=== PATIENT | male | born 1955 | race American Indian/Alaskan Native ===

== ENCOUNTER 2020-11-26 12:19 | Observation (INO) | payer MEDICARE ==
[2020-11-26] MEDS ORDERED: ONDANSETRON 4 MG/2 ML INJ IV ONE (12:51)
[2020-11-26] MEDS ORDERED: SODIUM CHLORIDE 0.9% 1000 ML 1,000 ML IV ONE (12:51)
[2020-11-26] MEDS ORDERED: ASPIRIN 325 MG TAB PO ONE (12:52)
--- NOTE | 2020-11-26 12:56 | Emergency Department Report ---
<MIGUEL ANGEL OLIVAS - Last Filed: 11/26/20 21:18> ED Chest Pain HPI - General Chief Complaint: Nausea/Vomiting/Diarrhea Stated Complaint: HEROIN WITHDRAWLS Time Seen by Provider: 11/26/20 12:36 - Related Data Home Medications Medication Instructions Recorded Confirmed Last Taken Albuterol 0.63% NEBS 11/26/20 Unknown Allergies Allergy/AdvReac Type Severity Reaction Status Date / Time No Known Allergies Allergy Unverified 11/26/20 12:23 ED Past Medical Hx - Medications Home Medications: Home Medications Medication Instructions Recorded Confirmed Last Taken Type Albuterol 0.63% NEBS 11/26/20 Unknown History ED Course - Reevaluation(s) Reevaluation #1: 11/26/20 21:18 Laboratory studies and radiology studies reviewed and appreciated. I suspect that patient has a leukocytosis likely secondary to stress reaction, likely secondary to narcotic withdrawal. CT scan abdomen pelvis reviewed and appreciated, no significant findings noted, with exception of nonspecific biliary ductal dilatation. Right upper quadrant ultrasound negative for acutely emergent findings. We will withhold narcotics at this time, as it appears that the patient may not have been forthcoming or honest about his history. He will be admitted to the medical service for his acute chest pain, systemic inflammatory response syndrome, and renal insufficiency. Antibiotics are requested by the admitting hospitalist team. Advance is [facility] physician, Dr. Marcelo Carpio to admit to [facility], with MARELY Nunez ED Medical Decision Making - Lab Data Result diagrams: 11/26/20 13:40 11/26/20 13:40 Vital Signs 11/26/20 11/26/20 11/26/20 12:23 12:32 12:34 Temperature 98.3 F 98.7 F Pulse Rate 110 H 115 H Respiratory 28 H 16 16 Rate Blood Pressure Blood Pressure 150/112 150/112 [Right] O2 Sat by Pulse 98 98 98 Oximetry 11/26/20 11/26/20 11/26/20 12:36 13:24 14:33 Temperature 98.7 F 98.4 F 98.9 F Pulse Rate 116 H 112 H 102 H Respiratory 18 18 18 Rate Blood Pressure 159/120 Blood Pressure 154/99 151/101 [Right] O2 Sat by Pulse 97 98 97 Oximetry 11/26/20 11/26/20 15:49 17:05 Temperature 98.4 F 98.7 F Pulse Rate 96 H 88 Respiratory 16 19 Rate Blood Pressure Blood Pressure 171/92 126/88 [Right] O2 Sat by Pulse 96 100 Oximetry Lab Results 11/26/20 11/26/20 11/26/20 Range/Units 13:40 13:40 13:40 WBC 19.0 H (4.5-11.0) K/mm3 RBC 5.44 H (3.65-5.03) M/mm3 Hgb 16.3 H (11.8-15.2) gm/dl Hct 49.6 H (35.5-45.6) % MCV 91 (84-94) fl MCH 30 (28-32) pg MCHC 33 (32-34) % RDW 14.0 (13.2-15.2) % Plt Count 542 H (140-440) K/mm3 Lymph % (Auto) 8.2 L (13.4-35.0) % [place] % (Auto) 6.1 (0.0-7.3) % Eos % (Auto) 0.0 (0.0-4.3) % Baso % (Auto) 0.5 (0.0-1.8) % Lymph # (Auto) 1.5 (1.2-5.4) K/mm3 [place] # (Auto) 1.2 H (0.0-0.8) K/mm3 Eos # (Auto) 0.0 (0.0-0.4) K/mm3 Baso # (Auto) 0.1 (0.0-0.1) K/mm3 Seg Neutrophils % 85.2 H (40.0-70.0) % Seg Neutrophils # 16.2 H (1.8-7.7) K/mm3 Sodium 136 L (137-145) mmol/L Potassium 3.7 (3.6-5.0) mmol/L Chloride 92.6 L (98-107) mmol/L Carbon Dioxide 23 (22-30) mmol/L Anion Gap 24 mmol/L BUN 27 H (9-20) mg/dL Creatinine 1.7 H (0.8-1.3) mg/dL Estimated GFR 41 ml/min BUN/Creatinine Ratio 16 % Glucose 135 H (75-100) mg/dL Lactic Acid (0.7-2.0) mmol/L Calcium 10.3 H (8.4-10.2) mg/dL Magnesium (1.7-2.3) mg/dL Ammonia 23.0 L (25-60) umol/L Total Creatine Kinase (55-170) units/L Troponin T (0.00-0.029) ng/mL NT-Pro-B Natriuret Pep (0-900) pg/mL Lipase (13-60) units/L Urine Color (Yellow) Urine Turbidity (Clear) Urine pH (5.0-7.0) Ur Specific [place] (1.003-1.030) Urine Protein (Negative) mg/dL Urine Glucose (UA) (Negative) mg/dL Urine Ketones (Negative) mg/dL Urine Blood (Negative) Urine Nitrite (Negative) Urine Bilirubin (Negative) Urine Ictotest (Negative) Urine Urobilinogen (<2.0) mg/dL Ur Leukocyte Esterase (Negative) Urine WBC (Auto) (0.0-6.0) /HPF Urine RBC (Auto) (0.0-6.0) /HPF Hyaline Casts /LPF Urine Mucus /HPF Urine Opiates Screen Urine Methadone Screen Acetaminophen (10.0-30.0) ug/mL Ur Barbiturates Screen Ur Phencyclidine Scrn Ur Amphetamines Screen U Benzodiazepines Scrn Urine Cocaine Screen U Marijuana (THC) Screen Drugs of Abuse Note 11/26/20 11/26/20 11/26/20 Range/Units 13:40 13:40 13:40 WBC (4.5-11.0) K/mm3 RBC (3.65-5.03) M/mm3 Hgb (11.8-15.2) gm/dl Hct (35.5-45.6) % MCV (84-94) fl MCH (28-32) pg MCHC (32-34) % RDW (13.2-15.2) % Plt Count (140-440) K/mm3 Lymph % (Auto) (13.4-35.0) % [place] % (Auto) (0.0-7.3) % Eos % (Auto) (0.0-4.3) % Baso % (Auto) (0.0-1.8) % Lymph # (Auto) (1.2-5.4) K/mm3 [place] # (Auto) (0.0-0.8) K/mm3 Eos # (Auto) (0.0-0.4) K/mm3 Baso # (Auto) (0.0-0.1) K/mm3 Seg Neutrophils % (40.0-70.0) % Seg Neutrophils # (1.8-7.7) K/mm3 Sodium (137-145) mmol/L Potassium (3.6-5.0) mmol/L Chloride (98-107) mmol/L Carbon Dioxide (22-30) mmol/L Anion Gap mmol/L BUN (9-20) mg/dL Creatinine (0.8-1.3) mg/dL Estimated GFR ml/min BUN/Creatinine Ratio % Glucose (75-100) mg/dL Lactic Acid (0.7-2.0) mmol/L Calcium (8.4-10.2) mg/dL Magnesium 1.50 L (1.7-2.3) mg/dL Ammonia (25-60) umol/L Total Creatine Kinase (55-170) units/L Troponin T < 0.010 (0.00-0.029) ng/mL NT-Pro-B Natriuret Pep 1985 H (0-900) pg/mL Lipase 38 (13-60) units/L Urine Color (Yellow) Urine Turbidity (Clear) Urine pH (5.0-7.0) Ur Specific Ebro (1.003-1.030) Urine Protein (Negative) mg/dL Urine Glucose (UA) (Negative) mg/dL Urine Ketones (Negative) mg/dL Urine Blood (Negative) Urine Nitrite (Negative) Urine Bilirubin (Negative) Urine Ictotest (Negative) Urine Urobilinogen (<2.0) mg/dL Ur Leukocyte Esterase (Negative) Urine WBC (Auto) (0.0-6.0) /HPF Urine RBC (Auto) (0.0-6.0) /HPF Hyaline Casts /LPF Urine Mucus /HPF Urine Opiates Screen Urine Methadone Screen Acetaminophen 12.4 (10.0-30.0) ug/mL Ur Barbiturates Screen Ur Phencyclidine Scrn Ur Amphetamines Screen U Benzodiazepines Scrn Urine Cocaine Screen U Marijuana (THC) Screen Drugs of Abuse Note 11/26/20 11/26/20 11/26/20 Range/Units 14:55 14:55 15:05 WBC (4.5-11.0) K/mm3 RBC (3.65-5.03) M/mm3 Hgb (11.8-15.2) gm/dl Hct (35.5-45.6) % MCV (84-94) fl MCH (28-32) pg MCHC (32-34) % RDW (13.2-15.2) % Plt Count (140-440) K/mm3 Lymph % (Auto) (13.4-35.0) % [place] % (Auto) (0.0-7.3) % Eos % (Auto) (0.0-4.3) % Baso % (Auto) (0.0-1.8) % Lymph # (Auto) (1.2-5.4) K/mm3 [place] # (Auto) (0.0-0.8) K/mm3 Eos # (Auto) (0.0-0.4) K/mm3 Baso # (Auto) (0.0-0.1) K/mm3 Seg Neutrophils % (40.0-70.0) % Seg Neutrophils # (1.8-7.7) K/mm3 Sodium (137-145) mmol/L Potassium (3.6-5.0) mmol/L Chloride (98-107) mmol/L Carbon Dioxide (22-30) mmol/L Anion Gap mmol/L BUN (9-20) mg/dL Creatinine (0.8-1.3) mg/dL Estimated GFR ml/min BUN/Creatinine Ratio % Glucose (75-100) mg/dL Lactic Acid 1.60 (0.7-2.0) mmol/L Calcium (8.4-10.2) mg/dL Magnesium (1.7-2.3) mg/dL Ammonia (25-60) umol/L Total Creatine Kinase 365 H (55-170) units/L Troponin T < 0.010 (0.00-0.029) ng/mL NT-Pro-B Natriuret Pep (0-900) pg/mL Lipase (13-60) units/L Urine Color (Yellow) Urine Turbidity (Clear) Urine pH (5.0-7.0) Ur Specific [place]bro (1.003-1.030) Urine Protein (Negative) mg/dL Urine Glucose (UA) (Negative) mg/dL Urine Ketones (Negative) mg/dL Urine Blood (Negative) Urine Nitrite (Negative) Urine Bilirubin (Negative) Urine Ictotest (Negative) Urine Urobilinogen (<2.0) mg/dL Ur Leukocyte Esterase (Negative) Urine WBC (Auto) (0.0-6.0) /HPF Urine RBC (Auto) (0.0-6.0) /HPF Hyaline Casts /LPF Urine Mucus /HPF Urine Opiates Screen Urine Methadone Screen Acetaminophen (10.0-30.0) ug/mL Ur Barbiturates Screen Ur Phencyclidine Scrn Ur Amphetamines Screen U Benzodiazepines Scrn Urine Cocaine Screen U Marijuana (THC) Screen Drugs of Abuse Note 11/26/20 11/26/20 Range/Units Unknown Unknown WBC (4.5-11.0) K/mm3 RBC (3.65-5.03) M/mm3 Hgb (11.8-15.2) gm/dl Hct (35.5-45.6) % MCV (84-94) fl MCH (28-32) pg MCHC (32-34) % RDW (13.2-15.2) % Plt Count (140-440) K/mm3 Lymph % (Auto) (13.4-35.0) % [place] % (Auto) (0.0-7.3) % Eos % (Auto) (0.0-4.3) % Baso % (Auto) (0.0-1.8) % Lymph # (Auto) (1.2-5.4) K/mm3 [place] # (Auto) (0.0-0.8) K/mm3 Eos # (Auto) (0.0-0.4) K/mm3 Baso # (Auto) (0.0-0.1) K/mm3 Seg Neutrophils % (40.0-70.0) % Seg Neutrophils # (1.8-7.7) K/mm3 Sodium (137-145) mmol/L Potassium (3.6-5.0) mmol/L Chloride (98-107) mmol/L Carbon Dioxide (22-30) mmol/L Anion Gap mmol/L BUN (9-20) mg/dL Creatinine (0.8-1.3) mg/dL Estimated GFR ml/min BUN/Creatinine Ratio % Glucose (75-100) mg/dL Lactic Acid (0.7-2.0) mmol/L Calcium (8.4-10.2) mg/dL Magnesium (1.7-2.3) mg/dL Ammonia (25-60) umol/L Total Creatine Kinase (55-170) units/L Troponin T (0.00-0.029) ng/mL NT-Pro-B Natriuret Pep (0-900) pg/mL Lipase (13-60) units/L Urine Color [place]oxie (Yellow) Urine Turbidity Clear (Clear) Urine pH 5.0 (5.0-7.0) Ur Specific [place] 1.044 H (1.003-1.030) Urine Protein 100 mg/dl (Negative) mg/dL Urine Glucose (UA) Neg (Negative) mg/dL Urine Ketones Tr (Negative) mg/dL Urine Blood Sm (Negative) Urine Nitrite Neg (Negative) Urine Bilirubin Sm (Negative) Urine Ictotest Negative (Negative) Urine Urobilinogen < 2.0 (<2.0) mg/dL Ur Leukocyte Esterase Neg (Negative) Urine WBC (Auto) 3.0 (0.0-6.0) /HPF Urine RBC (Auto) 9.0 (0.0-6.0) /HPF Hyaline Casts 1 /LPF Urine Mucus Few /HPF Urine Opiates Screen Negative Urine Methadone Screen Positive Acetaminophen (10.0-30.0) ug/mL Ur Barbiturates Screen Negative Ur Phencyclidine Scrn Negative Ur Amphetamines Screen Negative U Benzodiazepines Scrn Negative Urine Cocaine Screen Negative U Marijuana (THC) Screen Negative Drugs of Abuse Note Disclamer - Radiology Data Radiology results: report reviewed, image reviewed CT ABDOMEN AND PELVIS WITHOUT CONTRAST INDICATION / CLINICAL INFORMATION: diffu se abdominal tend. TECHNIQUE: Axial CT images were obtained through the abdomen and pelvis without IV contrast. Sagittal and coronal reformatted images. All CT scans at this location are performed using CT dose reduction for ALARA by means of automated exposure control. COMPARISON: None available. FINDINGS: LOWER CHEST: Moderate emphysematous changes. No infiltrate or effusion. Normal heart size. LIVER: No significant abnormality. 1 cm hypodensity near the right hepatic lobe is consistent with a small cyst or hemangioma. GALLBLADDER: No significant abnormality. BILE DUCTS: The common bile duct is markedly dilated up to 1.5 cm. No obvious obstructing lesion is identified on noncontrast CT. There is mild biliary dilatation of the liver hilum. PANCREAS: No significant abnormality. SPLEEN: No significant abnormality. ADRENALS: No significant abnormality. RIGHT KIDNEY and URETER: No significant abnormality. There is a 2 cm hypodensity near mid pole which probably represents a cyst. LEFT KIDNEY and URETER: No significant abnormality. There is a 1 cm hypodensity near mid pole which proba edgardo represents a cyst. STOMACH and SMALL BOWEL: No significant abnormality. COLON: No significant abnormality. APPENDIX: No significant abnormality. PERITONEUM: No free fluid. No free air. No fluid collection. LYMPH NODES: No significant adenopathy. AORTA and ARTERIES: No significant abnormality. IVC and VEINS: No significant abnormality. URINARY BLADDER: No significant abnormality. REPRODUCTIVE ORGANS: No significant abnormality. ADDITIONAL FINDINGS: None. SKELETAL SYSTEM: No significant abnormality. IMPRESSION: Mild biliary dilatation is suspected as described. There is no obvious cholelithiasis or obstructing bile duct lesion on noncontrast CT. Correlate with the patient and consider MRCP or ultrasound. Emphysematous changes at the lung bases. Renal hypodensities which probably represent cysts. Further imaging could be obtained with ultrasound, CT with contrast or MR if needed. Signer Name: Ricardo Gordillo Jr, MD Signed: 11/26/2020 3:19 PM Workstation Name: [id number] RUQ ABDOMINAL ULTRASOUND INDICATION / CLINICAL INFORMATION: abd pain biliaty ductal dilationb. COMPARISON: CT abdomen without contrast 11/26/2020 FINDINGS: PANCREAS: Visualized portions show no significant abnormality. ABDOMINAL AORTA: No significant abnormality. IVC: No significant abnormality.. LIVER: No significant abnormality. Normal hepatopedal blood flow in the main portal vein. GALLBLADDER: No significant abnormality. BILE DUCTS: No significant abnormality. Common bile duct measures 3 mm. RIGHT KIDNEY: Indeterminate 1.9 x 2.4 x 2.0 cm hypoechoic lesion left kidney. Unfortunately, no color Doppler interrogation was performed and lesion is not characteristic for simple cyst on noncontrast CT. FREE FLUID: None. ADDITIONAL FINDINGS: None. IMPRESSION: 1. 2.4 cm indeterminate right renal lesion. Recommend multiphase CT with and without contrast for further workup and evaluation. 2. Otherwise negative right upper quadrant abdominal ultrasound Signer Name: Marbin Grider MD Signed: 11/26/2020 6:23 PM Workstation Name: DON ED Disposition Clinical Impression: Acute chest pain, Acute abdominal pain, History of narcotic use, SIRS (systemic inflammatory response syndrome), Renal insufficiency Disposition: OP ADMIT IP TO THIS HOSP Is pt being admited?: Yes Does the pt Need Aspirin: No Condition: Good <ANASTASIIANITIN Brown - Last Filed: 11/27/20 16:23> ED Chest Pain HPI - General Source: patient Mode of arrival: Stretcher Limitations: No Limitations - History of Present Illness Initial Comments: 65-year-old male with reported history of COPD and 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 He states that he is visiting from [place], where he normally goes to a methadone clinic. He says that he was given 1 weeks worth of methadone for his visit here in [place] but had to stay an extra 5 days because of not having the finances to purchase a flight. He says that over the past 5 days he has had primarily global weakness, nausea/vomiting, diarrhea, chest pain, shortness of breath, generalized abd ominal pain, and whole body pain. He says the chest pain has been constant and is in the middle of his chest. It does not radiate. Is not associated with other symptoms other than shortness of breath. He says he does have chronic shortness of breath and uses an inhaler. He says for the last 3 days he has been vomiting frequently. When asked he says he does not know the name of his methadone clinic. He says his last use of IV heroin was 3 weeks ago. He says this feels exactly like prior episodes of withdrawal. He denies any associated fever/chills, headache, vision change, dysuria, hematuria, focal weakness, sensory changes, or any other complaints. Severity scale (0 -10): 5 Heart Score - HEART Score History: Slightly suspicious EKG: Non-specific Age: 45-65 Risk factors: 1-2 risk factors Troponin: < normal limit HEART Score: 3 - EKG Read Time Time EKG Completed: 13:13 EKG Read Time: 13:17 ED Review of Systems ROS: Stated complaint: HEROIN WITHDRAWLS Other details as noted in HPI Constitutional: denies: chills, fever Eyes: denies: eye pain, vision change ENT: denies: throat pain, congestion Respiratory: shortness of breath. denies: cough Cardiovascular: chest pain. denies: syncope Gastrointestinal: abdominal pain, nausea, vomiting, diarrhea Genitourinary: denies: dysuria, frequency Musculoskeletal: myalgia. denies: joint swelling, arthralgia Skin: denies: rash Neurological: denies: headache, weakness, numbness ED Past Medical Hx - Past Medical History Previous Medical History?: No Additional medical history: Bronchitis - Surgical History Past Surgical History?: No - Social History Smoking Status: Never Smoker Substance Use Type: Cocaine, Methamphetamines ED Physical Exam - General Limitations: No Limitations - Other Other exam information: GENERAL: Well developed and well nourished. No acute distress, occasionally moaning HEAD: Normocephalic. No obvious signs of trauma. ENT: Moist mucous membranes. EYES: Extraocular movements are intact. Pupils are equal round and reactive to light bilaterally NECK: Supple. Full ROM is intact. Trachea is midline. LUNGS: Nonlabored breathing. Equal chest rise bilaterally. Clear to auscultation bilaterally. CARDIOVASCULAR: Regular rate and rhythm. No murmurs or rubs. VASCULAR: Cap refill < 2 seconds ABDOMEN: Abdomen is slightly distended but soft. There is no significant tenderness, guarding or rebound. SKIN: Skin is warm and dry NEURO: Patient is awake, alert, and oriented. bed bug exterminator II-XII grossly intact. No focal deficits. Normal motor and sensory exam throughout. Normal speech. MUSCULOSKELETAL: No obvious deformities. No significant tenderness. Normal ROM throughout. BACK/SPINE: No midline tenderness or step-offs of the C/T/L spine. No c ostovertebral angle tenderness. ED Course Vital Signs 11/26/20 11/26/20 11/26/20 12:23 12:32 12:34 Temperature 98.3 F 98.7 F Pulse Rate 110 H 115 H Respiratory 28 H 16 16 Rate Blood Pressure Blood Pressure 150/112 150/112 [Right] O2 Sat by Pulse 98 98 98 Oximetry 11/26/20 11/26/20 11/26/20 12:36 13:24 14:33 Temperature 98.7 F 98.4 F 98.9 F Pulse Rate 116 H 112 H 102 H Respiratory 18 18 18 Rate Blood Pressure 159/120 Blood Pressure 154/99 151/101 [Right] O2 Sat by Pulse 97 98 97 Oximetry 11/26/20 11/26/20 11/27/20 15:49 17:05 04:28 Temperature 98.4 F 98.7 F 98.4 F Pulse Rate 96 H 88 95 H Respiratory 16 19 18 Rate Blood Pressure 144/101 Blood Pressure 171/92 126/88 [Right] O2 Sat by Pulse 96 100 93 Oximetry MORRO score - Morro Score Age > 65: (0) No Aspirin use within the Past 7 Days: (0) No 3 or more CAD Risk Factors: (0) No 2 or more Angina events in past 24 hrs: (0) No Known CAD with more than 50% Stenosis: (0) No Elevated Cardiac Markers: (0) No ST Deviation Greater than 0.5mm: (0) No MORRO Score: 0 ED Medical Decision Making - Lab Data Result diagrams: 11/26/20 13:40 11/26/20 21:45 - EKG Data -: EKG Interpreted by Me - EKG Data When compared to previous EKG there are: previous EKG unavailable 11/26/20 13:59 Sinus tachycardia. Normal axis. Right atrial enlargement. Intraventricular conduction delay. Otherwise normal intervals. No significant ST segment or T wave abnormalities. - Radiology Data CHEST 2 VIEWS INDICATION: Chest Pain. COMPARISON: None FINDINGS: Support devices: None. Heart: Within normal limits. Lungs/pleura: No acute air space or interstitial disease. No pneumothorax. Additional findings: None. IMPRESSION: No acute findings. Signer Name: Ricardo Gordillo Jr, MD Signed: 11/26/2020 12:57 PM Workstation Name: [id number] - Medical Decision Making 65-year-old male with history of COPD and IV heroin on methadone presents complaining of withdrawal symptoms for the past 3 days. He has numerous complaints including chest pain, shortness of breath, generalized abdominal pain, nausea/vomiting/diarrhea, and whole body pain. He says this feels exactly like prior withdrawal. The patient does not recall the name of his methadone clinic. On initial presentation he is tachycardic but with otherwise normal vital signs. He has moist mucous membranes. His abdomen is slightly distended but soft and without significant tenderness. He has no CVA tenderness. Lungs are clear to auscultation. I asked the patient whether we can find out the name of the clinic because I cannot administer opiates to a patient without confirming that they are indeed taking methadone. In the meantime we will perform broad work-up with a full set of labs, EKG, and chest x-ray. The nurse was able to find out the name of the methadone clinic from the patient's . She contacted the clinic and apparently there is no record of the patient having been a patient there. When I conveyed this information to the patient, he asked to call his to pick him up. However, the patient's labs have resulted and reveal several significant abnormalities. He has a leuko cytosis with white blood cell count of 19, hemoglobin of 16.3 and elevated platelets. Although this may be a stress leukocytosis combined with hemoconcentration given that fall blood cell types are elevated, given the degree of white blood cell elevation I will initiate the sepsis order set including labs and cultures. Chemistry has resulted and reveals sodium of 136, hypokalemia with potassium of 3.7, hypomagnesemia with magnesium of 1.5 as well as elevated creatinine of 1.7 and BUN of 27. The patient's heart score is 3. The patient's Wells score for PE is 1.5, due to his tachycardia, corresponding to low risk. However, given that the patient has multiple objective signs of volume depletion including hemoconcentration and BARBARA, this is the most likely source of his tachycardia and further work-up for PE is not warranted at this time. I went and spoke to the patient about these lab abnormalities and he says he has no history of kidney dysfunction. I asked him what complaints he had at this time and he stated that he has no chest pain or shortness of breath but that his abdomen and back are hurting him. I have therefore ordered CT of the abdomen pelvis. We will give 8 mg of morphine for the patient's pain as well as 30 mL/kg of IV fluids. We will hold off on antibiotics unless we identify a source of infection. We will follow up the remaining studies and plan to admit to medicine for further work-up and management. Electrolyte repletion has been ordered. The case has been signed out to Dr. Olivas at 4:00 PM. Critical care attestation.: If time is entered above; I have spent that time in minutes in the direct care of this critically ill patient, excluding procedure time. ED Disposition Is pt being admited?: Yes
[2020-11-26 14:01] LABS: Basophils # (Auto) 0.1 K/mm3 (0.0-0.1); Basophils % (Auto) 0.5 % (0.0-1.8); Hematocrit 49.6 % (35.5-45.6); Hemoglobin 16.3 gm/dl (11.8-15.2); Lymphocytes # (Auto) 1.5 K/mm3 (1.2-5.4); Lymphocytes % (Auto) 8.2 % (13.4-35.0); Mean Corpuscular HGB Conc 33 % (32-34); Mean Corpuscular Volume 91 fl (84-94); Monocytes # (Auto) 1.2 K/mm3 (0.0-0.8); Monocytes % (Auto) 6.1 % (0.0-7.3); Platelet Count 542 K/mm3 (140-440); Red Blood Count 5.44 M/mm3 (3.65-5.03)
--- NOTE | 2020-11-26 14:02 | XRay Report ---
CHEST 2 VIEWS INDICATION: Chest Pain. COMPARISON: None FINDINGS: Support devices: None. Heart: Within normal limits. Lungs/pleura: No acute air space or interstitial disease. No pneumothorax. Additional findings: None. IMPRESSION: No acute findings. Signer Name: Ricardo Gordillo Jr, MD Signed: 11/26/2020 1:57 PM Workstation Name: [id number]
[2020-11-26 14:14] LABS: Calcium 10.3 mg/dL (8.4-10.2)
[2020-11-26] MEDS ORDERED: SODIUM CHLORIDE 0.9% 1000 ML IV SOLN IV ONE (14:36)
[2020-11-26] MEDS ORDERED: MORPHINE 4 MG/1 ML INJ IV ONE (14:38)
[2020-11-26] MEDS ORDERED: POTASSIUM CHLORIDE ER 10 MEQ TAB PO NR (15:22)
[2020-11-26] MEDS ORDERED: MAGNESIUM SULFATE 2 GM/50 ML BAG IV ONE (15:39)
[2020-11-26 16:10] LABS: Amphetamine Screen,Urine Negative; Benzodiazepines Screen,Urine Negative; Cannabinoid Screen,Urine Negative; Cocaine Screen,Urine Negative; Opiate Screen,Urine Negative
[2020-11-26 16:13] LABS: Bilirubin,Urine SM (Negative); Blood,Urine SM (Negative); Color,Urine Amber (Yellow); Hyaline Casts,Urine 1 /LPF; Mucus,Urine FEW /HPF; Urobilinogen,Urine < 2.0 mg/dL (<2.0)
[2020-11-26 16:22] LABS: Methadone Screen,Urine Positive
[2020-11-26 16:23] LABS: Ictotest,Urine Negative (Negative)
--- NOTE | 2020-11-26 16:24 | Cat Scan Report ---
CT ABDOMEN AND PELVIS WITHOUT CONTRAST INDICATION / CLINICAL INFORMATION: diffuse abdominal tend. TECHNIQUE: Axial CT images were obtained through the abdomen and pelvis without IV contrast. Sagittal and lee l reformatted images. All CT scans at this location are performed using CT dose reduction for ALARA b y means of automated exposure control. COMPARISON: None available. FINDINGS: LOWER CHEST: Moderate emphysematous changes. No infiltrate or effusion. Normal heart size. LIVER: No significant abnormality. 1 cm hypodensity near the right hepatic lobe is consistent with a small cyst or hemangioma. GALLBLADDER: No significant abnormality. BILE DUCTS: The common bile duct is markedly dilated up to 1.5 cm. No obvious obstructing lesion is i dentified on noncontrast CT. There is mild biliary dilatation of the liver hilum. PANCREAS: No significant abnormality. SPLEEN: No significant abnormality. ADRENALS: No significant abnormality. RIGHT KIDNEY and URETER: No significant abnormality. There is a 2 cm hypodensity near mid pole which probably represents a cyst. LEFT KIDNEY and URETER: No significant abnormality. There is a 1 cm hypodensity near mid pole which p robably represents a cyst. STOMACH and SMALL BOWEL: No significant abnormality. COLON: No significant abnormality. APPENDIX: No significant abnormality. PERITONEUM: No free fluid. No free air. No fluid collection. LYMPH NODES: No significant adenopathy. AORTA and ARTERIES: No significant abnormality. IVC and VEINS: No significant abnormality. URINARY BLADDER: No significant abnormality. REPRODUCTIVE ORGANS: No significant abnormality. ADDITIONAL FINDINGS: None. SKELETAL SYSTEM: No significant abnormality. IMPRESSION: Mild biliary dilatation is suspected as described. There is no obvious cholelithiasis or obstructing bile duct lesion on noncontrast CT. Correlate with the patient and consider MRCP or ultrasound. Emphysematous changes at the lung bases. Renal hypodensities which probably represent cysts. Further imaging could be obtained with ultrasound , CT with contrast or MR if needed. Signer Name: Ricardo Gordillo Jr, MD Signed: 11/26/2020 4:19 PM Workstation Name: [id number]
[2020-11-26 17:45] LABS: Albumin 4.9 g/dL (3.9-5); Bilirubin,Direct 0.2 mg/dL (0-0.2)
--- NOTE | 2020-11-26 19:28 | Ultrasound Report ---
LIMITED RUQ ABDOMINAL ULTRASOUND INDICATION / CLINICAL INFORMATION: abd pain biliaty ductal dilationb. COMPARISON: CT abdomen without contrast 11/26/2020 FINDINGS: PANCREAS: Visualized portions show no significant abnormality. ABDOMINAL AORTA: No significant abnormality. IVC: No significant abnormality.. LIVER: No significant abnormality. Normal hepatopedal blood flow in the main portal vein. GALLBLADDER: No significant abnormality. BILE DUCTS: No significant abnormality. Common bile duct measures 3 mm. RIGHT KIDNEY: Indeterminate 1.9 x 2.4 x 2.0 cm hypoechoic lesion left kidney. Unfortunately, no color Doppler interrogation was performed and lesion is not characteristic for simple cyst on noncontrast CT. FREE FLUID: None. ADDITIONAL FINDINGS: None. IMPRESSION: 1. 2.4 cm indeterminate right renal lesion. Recommend multiphase CT with and without contrast for fur ther workup and evaluation. 2. Otherwise negative right upper quadrant abdominal ultrasound Signer Name: Marbin Grider MD Signed: 11/26/2020 7:23 PM Workstation Name: [id number]
[2020-11-26] MEDS ORDERED: ACETAMINOPHEN 500 MG TAB PO ONE (19:31)
[2020-11-26] MEDS ORDERED: NITROGLYCERIN 0.4 MG TAB SUBL SL PRN (21:28)
[2020-11-26] MEDS ORDERED: MORPHINE 4 MG/1 ML INJ IV PRN (21:28)
[2020-11-26] MEDS ORDERED: oxyCODONE /ACETAMINOPHEN 5-325MG TAB PO PRN (21:28)
[2020-11-26] MEDS ORDERED: ACETAMINOPHEN 325 MG TAB PO PRN (21:28)
[2020-11-26] MEDS ORDERED: ALBUTEROL 2.5 MG/3 ML NEBU IH PRN (21:28)
[2020-11-26] MEDS ORDERED: ONDANSETRON 4 MG/2 ML INJ IV PRN (21:28)
[2020-11-26] MEDS ORDERED: NALOXONE 0.4 MG/1 ML INJ IV PRN (21:28)
[2020-11-26] MEDS ORDERED: LIDOCAINE 5% 1 EACH PATCH TD STA (21:29)
[2020-11-26] MEDS ORDERED: ERTAPENEM 1 GM in SODIUM CHLORIDE 0.9% 50 ML IV ONE (22:18)
[2020-11-26 22:20] LABS: BUN/Creatinine Ratio 21; Blood Urea Nitrogen 25 mg/dL (9-20); Calcium 8.7 mg/dL (8.4-10.2); Chol/HDL Ratio 6.45 %; HDL Cholesterol 40 mg/dL (40-59); Hemolysis Index 31; LDL Cholesterol,Direct 187 mg/dL (50-130)
[2020-11-26] MEDS: DOCUSATE SODIUM 100 MG CAP PO SCH (22:40)
[2020-11-26] MEDS: HYDROmorphone 1 MG/1 ML INJ IV PRN (22:40)
[2020-11-26] MEDS: HEPARIN 5,000 UNIT/1 ML VIAL SUB-Q SCH (22:43)
--- NOTE | 2020-11-26 22:44 | History and Physical Report ---
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 Patient states he has been experiencing 10/10 sharp substernal chest pain with radiation to upper back x3 days. Initially his pain was intermittent however progress to constant and became more intense as the days progressed. Denies taking any [id number] medicine for relief. Endorses multiple episodes of emesis last night and one episode today prior to presenting to ED. Patient states he is visiting from [place] and has been here approximately 1 week. Patient does not recall the name of his methadone clinic at this time. Denies fever, chills, diarrhea, abdominal pain, constipation, myalgia, loss of taste, loss of smell, palpitation, recent heroin use/binge or recent sick contacts Past History Past Medical History: COPD, other (IV heroin use, on methadone, bronchitis, chronic CKD.) Past Surgical History: Other (Previously on HD with AV fistula, removal of AV fistula approximately 10 years ago, " head surgery") Social history: , lives with family (Lives with (in [place]), staying with daughter while visiting in [place]), smoking (Smokes half pack a day), IV drug use, full code. denies: alcohol abuse, prescription drug abuse Family history: hypertension Medications and Allergies Allergies Allergy/AdvReac Type Severity Reaction Status Date / Time No Known Allergies Allergy Unverified 11/26/20 12:23 Home Medications Medication Instructions Recorded Confirmed Last Taken Type Albuterol 0.63% NEBS 11/26/20 Unknown History Active Meds: Active Medications Acetaminophen (Acetaminophen 325 Mg Tab) 650 mg PO Q4H PRN PRN Reason: Pain MILD(1-3)/Fever >100.5/RIVAS Albuterol (Albuterol 2.5 Mg/3 Ml Nebu) 2.5 mg IH Q3HRT PRN PRN Reason: Shortness Of Breath Aspirin (Aspirin Ec 325 Mg Tab) 325 mg PO QDAY [facility] Atorvastatin Calcium (Atorvastatin 40 Mg Tab) 40 mg PO QHS [facility] Docusate Sodium (Docusate Sodium 100 Mg Cap) 100 mg PO BID [facility] Heparin Sodium (Porcine) (Heparin 5,000 Unit/1 Ml Vial) 5,000 unit SUB-Q Q12HR [facility] Hydromorphone HCl (Hydromorphone 1 Mg/1 Ml Inj) 0.5 mg IV Q3H PRN PRN Reason: Pain , Severe (7-10) Ertapenem 1 gm/ Sodium (Chloride) 50 mls @ 100 mls/hr IV ONCE ONE Stop: 11/26/20 22:47 Morphine Sulfate (Morphine 4 Mg/1 Ml Inj) 2 mg IV Q5MIN PRN PRN Reason: Chest Pain Naloxone HCl (Naloxone 0.4 Mg/1 Ml Inj) 0.1 mg IV Q2MIN PRN PRN Reason: Res Rate </= 8 or 02 SAT < 92% Nicotine (Nicotine 14 Mg/24 Hr Patch) 14 mg TD QDAY [facility] Nitroglycerin (Nitroglycerin 0.4 Mg Tab Subl) 0.4 mg SL Q5M PRN PRN Reason: Chest Pain Ondansetron HCl (Ondansetron 4 Mg/2 Ml Inj) 4 mg IV Q6H PRN PRN Reason: Nausea And Vomiting Oxycodone/Acetaminophen (Oxycodone /Acetaminophen 5-325mg Tab) 1 tab PO Q6H PRN PRN Reason: Pain, Moderate (4-6) Sodium Chloride (Sodium Chloride 0.9% 10 Ml Flush Syringe) 10 ml IV BID LOPEZ Sodium Chloride (Sodium Chloride 0.9% 10 Ml Flush Syringe) 10 ml IV PRN PRN PRN Reason: LINE FLUSH Review of Systems All systems: negative (As noted in HPI) Exam - Physical Exam Narrative exam: Physical exam General appearance: Present: Appears uncomfortable,, alert and oriented 3, adult male - EENT Eyes: Present: PERRL, EOM intact ENT: hearing intact, normal dentition - Neck Neck: Present: supple, normal ROM - Respiratory Respiratory effort: Non-labored Respiratory: Clear throughout - Cardiovascular Heart rate: 111 (bpm) Rhythm: Sinus tachycardia Heart Sounds: Present: S1 & S2. Absent: rub, click - Extremities Extremities: no ischemia, pulses intact, - Peripheral Assessment Peripheral Pulses: within normal limits - Abdominal General gastrointestinal: soft, non-tender, normal bowel sounds - Integumentary Integumentary: Present: warm, dry - Musculoskeletal Musculoskeletal: Able to move all extremities -Neurological Neurological: CN II-XII intact - Psychiatric Psychiatric: cooperative, slightly anxious - Constitutional Vitals: Temp Pulse Resp BP Pulse Ox 98.7 F 88 19 126/88 100 11/26/20 17:05 11/26/20 17:05 11/26/20 17:05 11/26/20 17:05 11/26/20 17:05 HEART Score - HEART Score EKG: Non-specific Age: 45-65 Risk factors: 1-2 risk factors Troponin: Troponin T < 0.010 ng/mL (0.00-0.029) 11/26/20 17:10 Troponin: < normal limit Results - Labs CBC & Chem 7: 11/26/20 13:40 11/26/20 21:45 Labs: Laboratory Last Values WBC 19.0 K/mm3 (4.5-11.0) H 11/26/20 13:40 RBC 5.44 M/mm3 (3.65-5.03) H 11/26/20 13:40 Hgb 16.3 gm/dl (11.8-15.2) H 11/26/20 13:40 Hct 49.6 % (35.5-45.6) H 11/26/20 13:40 MCV 91 fl (84-94) 11/26/20 13:40 MCH 30 pg (28-32) 11/26/20 13:40 MCHC 33 % (32-34) 11/26/20 13:40 RDW 14.0 % (13.2-15.2) 11/26/20 13:40 Plt Count 542 K/mm3 (140-440) H 11/26/20 13:40 Lymph % (Auto) 8.2 % (13.4-35.0) L 11/26/20 13:40 [place] % (Auto) 6.1 % (0.0-7.3) 11/26/20 13:40 Eos % (Auto) 0.0 % (0.0-4.3) 11/26/20 13:40 Baso % (Auto) 0.5 % (0.0-1.8) 11/26/20 13:40 Lymph # (Auto) 1.5 K/mm3 (1.2-5.4) 11/26/20 13:40 [place] # (Auto) 1.2 K/mm3 (0.0-0.8) H 11/26/20 13:40 Eos # (Auto) 0.0 K/mm3 (0.0-0.4) 11/26/20 13:40 Baso # (Auto) 0.1 K/mm3 (0.0-0.1) 11/26/20 13:40 Seg Neutrophils % 85.2 % (40.0-70.0) H 11/26/20 13:40 Seg Neutrophils # 16.2 K/mm3 (1.8-7.7) H 11/26/20 13:40 Sodium 135 mmol/L (137-145) L 11/26/20 21:45 Potassium 3.8 mmol/L (3.6-5.0) 11/26/20 21:45 Chloride 100.0 mmol/L (98-107) 11/26/20 21:45 Carbon Dioxide 20 mmol/L (22-30) L 11/26/20 21:45 Anion Gap 19 mmol/L 11/26/20 21:45 BUN 25 mg/dL (9-20) H 11/26/20 21:45 Creatinine 1.2 mg/dL (0.8-1.3) 11/26/20 21:45 Estimated GFR > 60 ml/min 11/26/20 21:45 BUN/Creatinine Ratio 21 % 11/26/20 21:45 Glucose 105 mg/dL (75-100) H 11/26/20 21:45 Lactic Acid 1.50 mmol/L (0.7-2.0) 11/26/20 17:10 Calcium 8.7 mg/dL (8.4-10.2) D 11/26/20 21:45 Magnesium 1.50 mg/dL (1.7-2.3) L 11/26/20 13:40 Total Bilirubin 0.80 mg/dL (0.1-1.2) 11/26/20 13:40 Direct Bilirubin 0.2 mg/dL (0-0.2) 11/26/20 13:40 Indirect Bilirubin 0.6 mg/dL 11/26/20 13:40 AST 25 units/L (5-40) 11/26/20 13:40 ALT 22 units/L (7-56) 11/26/20 13:40 Alkaline Phosphatase 124 units/L (35-129) 11/26/20 13:40 Ammonia 23.0 umol/L (25-60) L 11/26/20 13:40 Total Creatine Kinase 365 units/L (55-170) H 11/26/20 14:55 Troponin T < 0.010 ng/mL (0.00-0.029) 11/26/20 17:10 NT-Pro-B Natriuret Pep 1985 pg/mL (0-900) H 11/26/20 13:40 Total Protein 9.2 g/dL (6.3-8.2) H 11/26/20 13:40 Albumin 4.9 g/dL (3.9-5) 11/26/20 13:40 Albumin/Globulin Ratio 1.1 % 11/26/20 13:40 Triglycerides 292 mg/dL (2-149) H 11/26/20 21:45 Cholesterol 258 mg/dL (50-199) H 11/26/20 21:45 LDL Cholesterol Direct 187 mg/dL (50-130) H 11/26/20 21:45 HDL Cholesterol 40 mg/dL (40-59) 11/26/20 21:45 Cholesterol/HDL Ratio 6.45 % 11/26/20 21:45 Lipase 35 units/L (13-60) 11/26/20 13:40 Lipase 38 units/L (13-60) 11/26/20 13:40 Urine Color Roxie (Yellow) 11/26/20 Unknown Urine Turbidity Clear (Clear) 11/26/20 Unknown Urine pH 5.0 (5.0-7.0) 11/26/20 Unknown Ur Specific [place] 1.044 (1.003-1.030) H 11/26/20 Unknown Urine Protein 100 mg/dl mg/dL (Negative) 11/26/20 Unknown Urine Glucose (UA) Neg mg/dL (Negative) 11/26/20 Unknown Urine Ketones Tr mg/dL (Negative) 11/26/20 Unknown Urine Blood Sm (Negative) 11/26/20 Unknown Urine Nitrite Neg (Negative) 11/26/20 Unknown Urine Bilirubin Sm (Negative) 11/26/20 Unknown Urine Ictotest Negative (Negative) 11/26/20 Unknown Urine Urobilinogen < 2.0 mg/dL (<2.0) 11/26/20 Unknown Ur Leukocyte Esterase Neg (Negative) 11/26/20 Unknown Urine WBC (Auto) 3.0 /HPF (0.0-6.0) 11/26/20 Unknown Urine RBC (Auto) 9.0 /HPF (0.0-6.0) 11/26/20 Unknown Hyaline Casts 1 /LPF 11/26/20 Unknown Urine Mucus Few /HPF 11/26/20 Unknown Salicylates < 0.3 mg/dL (2.8-20.0) L 11/26/20 13:40 Urine Opiates Screen Negative 11/26/20 Unknown Urine Methadone Screen Positive 11/26/20 Unknown Acetaminophen 12.4 ug/mL (10.0-30.0) 11/26/20 13:40 Ur Barbiturates Screen Negative 11/26/20 Unknown Ur Phencyclidine Scrn Negative 11/26/20 Unknown Ur Amphetamines Screen Negative 11/26/20 Unknown U Benzodiazepines Scrn Negative 11/26/20 Unknown Urine Cocaine Screen Negative 11/26/20 Unknown U Marijuana (THC) Screen Negative 11/26/20 Unknown Drugs of Abuse Note Disclamer 11/26/20 Unknown Microbiology: Microbiology 11/26/20 15:05 Peripheral/Venous Blood Culture - Preliminary Culture in Progress 11/26/20 14:55 Peripheral/Venous Blood Culture - Preliminary Culture in Progress - Imaging and Cardiology Imaging and Cardiology: CXR: Heart: Within normal limits. Lungs/pleura: No acute air space or interstitial disease. No pneumothorax. Additional findings: None. IMPRESSION: No acute findings. CT Abd/Pelvis: FINDINGS: LOWER CHEST: Moderate emphysematous changes. No infiltrate or effusion. Normal heart size. LIVER: No significant abnormality. 1 cm hypodensity near the right hepatic lobe is consistent with a small cyst or hemangioma. GALLBLADDER: No significant abnormality. BILE DUCTS: The common bile duct is markedly dilated up to 1.5 cm. No obvious obstructing lesion is identified on noncontrast CT. There is mild biliary dilatation of the liver hilum. PANCREAS: No significant abnormality. SPLEEN: No significant abnormality. ADRENALS: No significant abnormality. RIGHT KIDNEY and URETER: No significant abnormality. There is a 2 cm hypodensity near mid pole which probably represents a cyst. LEFT KIDNEY and URETER: No significant abnormality. There is a 1 cm hypodensity near mid pole which probably represents a cyst. STOMACH and SMALL BOWEL: No significant abnormality. COLON: No significant abnormality. APPENDIX: No significant abnormality. PERITONEUM: No free fluid. No free air. No fluid collection. LYMPH NODES: No significant adenopathy. AORTA and ARTERIES: No significant abnormality. IVC and VEINS: No significant abnormality. URINARY BLADDER: No significant abnormality. REPRODUCTIVE ORGANS: No significant abnormality. ADDITIONAL FINDINGS: None. SKELETAL SYSTEM: No significant abnormality. IMPRESSION: Mild biliary dilatation is suspected as described. Th ere is no obvious cholelithiasis or obstructing bile duct lesion on noncontrast CT. Correlate with the patient and consider MRCP or ultrasound. Emphysematous changes at the lung bases. Renal hypodensities which probably represent cysts. Further imaging could be obtained with ultrasound, CT with contrast or MR if needed. Abd US: COMPARISON: CT abdomen without contrast 11/26/2020 FINDINGS: PANCREAS: Visualized portions show no significant abnormality. ABDOMINAL AORTA: No significant abnormality. IVC: No significant abnormality.. LIVER: No significant abnormality . Normal hepatopedal blood flow in the main portal vein. GALLBLADDER: No significant abnormality. BILE DUCTS: No significant abnormality. Common bile duct measures 3 mm. RIGHT KIDNEY: Indeterminate 1.9 x 2.4 x 2.0 cm hypoechoic lesion left kidney. Unfortunately, no color Doppler interrogation was performed and lesion is not characteristic for simple cyst on noncontrast CT. FREE FLUID: None. ADDITIONAL FINDINGS: None. IMPRESSION: 1. 2.4 cm indeterminate right renal lesion. Recommend multiphase CT with and without contrast for further workup and evaluation. 2. Otherwise negative right upper quadrant abdominal ultrasound Assessment and Plan Assessment and plan: SIRS -CXR unremarkable -Leukocytosis 19.0 -Tachycardic with heart rate 110-120 bpm -Afebrile -Received 1 dose of empiric IV ABX in ED -UA negative -cultures pending -Will continue to workup source of infection, hold off on additional doses of IV ABX for now -May be due to dehydration -Follow up on labs -Continue supportive care Acute atypical chest Pain -Initiate chest pain protocol -Continuous telemetry monitoring -Continue supportive care -Pain mgmt -Troponin negative x2 , will continue to trend -EKG unrevealing for acute ischemic abnormalities -May be due to heroin withdrawal/abuse -Echo pending Acute on chronic renal insufficiency -Creatinine 1.7 with GFR 41 -Patient has history of CKD, previously on HD for 3 years approximately 10 years ago -Avoid nephrotoxic agents -Renal dose all meds -Nephrology consulted Tobacco abuse -Current every day smoker -"Smoking half pack a day -Counseled for cessation -Nicotine patch when necessary History of COPD -Albuterol as needed History of IV heroin use -Reports last used 1 week ago -Reports being on methadone with last dose given 4 to 5 days ago -Day team will need to follow-up with methadone clinic to resume appropriate dose DVT PPX -On Lovenox Advance Directives: No VTE prophylaxis?: Chemical, Mechanical Plan of care discussed with patient/family: Yes
[2020-11-27] MEDS ORDERED: REGADENOSON 0.4 MG/5 ML INJ IV ONE (06:53)
[2020-11-27] MEDS: HYDROmorphone 1 MG/1 ML INJ IV PRN (07:34)
--- NOTE | 2020-11-27 09:16 | Consultation ---
History of Present Illness - Reason for Consult Consult date: 11/27/20 acute renal failure - History of Present Illness The patient is a 65 YO AAM with history significant for COPD, tobacco abuse, IV heroin use and Methadone use who presented to [facility] ED 11/26 with complains of Chest pain, generalized body pain, N & V for 3-4 days due to "heroin withdrawal". Endorses multiple episodes of non-bloody emesis. Patient denies any abd pain, diarrhea, fever, chills, dizziness or syncope. Patient states that he is visiting from [place] and has been here approximately 1 week. Labs significant for Past History Past Medical History: COPD, other (IV heroin use, on methadone, bronchitis, chronic CKD.) Past Surgical History: Other (Previously on HD with AV fistula, removal of AV fistula approximately 10 years ago, " head surgery") Social history: , lives with family (Lives with (in [place]), staying with daughter while visiting in [place]), smoking (Smokes half pack a day), IV drug use, full code. denies: alcohol abuse, prescription drug abuse Family history: hypertension Medications and Allergies Allergies Allergy/AdvReac Type Severity Reaction Status Date / Time No Known Allergies Allergy Unverified 11/26/20 12:23 Home Medications Medication Instructions Recorded Confirmed Last Taken Type Albuterol 0.63% NEBS 11/26/20 Unknown History Active Meds: Active Medications Acetaminophen (Acetaminophen 325 Mg Tab) 650 mg PO Q4H PRN PRN Reason: Pain MILD(1-3)/Fever >100.5/RIVAS Albuterol (Albuterol 2.5 Mg/3 Ml Nebu) 2.5 mg IH Q3HRT PRN PRN Reason: Shortness Of Breath Aspirin (Aspirin Ec 325 Mg Tab) 325 mg PO QDAY [facility] Atorvastatin Calcium (Atorvastatin 40 Mg Tab) 40 mg PO QHS [facility] Last Admin: 11/26/20 22:40 Dose: 40 mg Documented by: Docusate Sodium (Docusate Sodium 100 Mg Cap) 100 mg PO BID [facility] Last Admin: 11/26/20 22:40 Dose: 100 mg Documented by: Heparin Sodium (Porcine) (Heparin 5,000 Unit/1 Ml Vial) 5,000 unit SUB-Q Q12HR [facility] Last Admin: 11/26/20 22:43 Dose: 5,000 unit Documented by: Hydromorphone HCl (Hydromorphone 1 Mg/1 Ml Inj) 0.5 mg IV Q3H PRN PRN Reason: Pain , Severe (7-10) Last Admin: 11/27/20 07:34 Dose: 0.5 mg Documented by: Morphine Sulfate (Morphine 4 Mg/1 Ml Inj) 2 mg IV Q5MIN PRN PRN Reason: Chest Pain Last Admin: 11/27/20 05:00 Dose: 2 mg Documented by: Naloxone HCl (Naloxone 0.4 Mg/1 Ml Inj) 0.1 mg IV Q2MIN PRN PRN Reason: Res Rate </= 8 or 02 SAT < 92% Nicotine (Nicotine 14 Mg/24 Hr Patch) 14 mg TD QDAY [facility]OPE[facility] Nitroglycerin (Nitroglycerin 0.4 Mg Tab Subl) 0.4 mg SL Q5M PRN PRN Reason: Chest Pain Ondansetron HCl (Ondansetron 4 Mg/2 Ml Inj) 4 mg IV Q6H PRN PRN Reason: Nausea And Vomiting Oxycodone/Acetaminophen (Oxycodone /Acetaminophen 5-325mg Tab) 1 tab PO Q6H PRN PRN Reason: Pain, Moderate (4-6) Sodium Chloride (Sodium Chloride 0.9% 10 Ml Flush Syringe) 10 ml IV BID [facility]OPEZ Last Admin: 11/26/20 22:43 Dose: 10 ml Documented by: Sodium Chloride (Sodium Chloride 0.9% 10 Ml Flush Syringe) 10 ml IV PRN PRN PRN Reason: LINE FLUSH Last Admin: 11/27/20 05:00 Dose: 10 ml Documented by: Review of Systems Constitutional: no weight loss, no weight gain, no fever, no chills Cardiovascular: no orthopnea, no edema, no syncope, no lightheadedness, no shortness of breath, no leg edema Respiratory: no cough, no hemoptysis, no shortness of breath, no dyspnea on exertion Gastrointestinal: nausea, vomiting, no abdominal pain, no diarrhea Genitourinary Male: no dysuria, no hematuria Integumentary: no wounds Neurological: no convulsions, no aphasia, no change in speech, no change in mentation, no confusion, no memory loss Exam - Vital Signs Vital signs: Vital Signs Temp Pulse Resp BP Pulse Ox 98.3 F 110 H 28 H 150/112 98 11/26/20 12:23 11/26/20 12:23 11/26/20 12:23 11/26/20 12:23 11/26/20 12:23 Results - Lab Results 11/26/20 13:40 11/26/20 21:45 Most recent lab results Calcium 8.7 mg/dL (8.4-10.2) D 11/26/20 21:45 Magnesium 1.50 mg/dL (1.7-2.3) L 11/26/20 13:40 Assessment and Plan 1. Acute kidney injury: Vasomotor BARBARA in the setting of volume depletion. CT abdomen negative for hydro. Urine studies ordered. Baseline renal function is unknown. Monitor renal function. Creatinine level is better. Avoid nephrotoxic agents. Meds dosage based on GFR. 2. FEN: Metabolic acidosis, monitor. Monitor lytes. 3. Chest pain: Per primary. 4. SIRS. 5. COPD / Tobacco use: Counseled. Subjective: Patient was seen and examined at the bedside. Examination: General appearance: well-developed, appears stated age, not in distress HEENT: ATNC, pupils equal Neck: Trachea midline Respiratory: ctab Cardiology: S1S2, no murmur Gastrointestinal: soft, bowel sounds heard, not tender Integumentary: warm and dry Neurologic: AO, non-focal Ext: no edema
[2020-11-27] MEDS ORDERED: ASPIRIN EC 325 MG TAB PO SCH (10:00)
[2020-11-27] MEDS ORDERED: NICOTINE 14 MG/24 HR PATCH TD SCH (10:00)
--- NOTE | 2020-11-27 10:16 | Progress Note ---
Assessment and Plan Assessment and plan: SIRS Chest pain Acute kidney injury on CKD. Tobacco abuse History of COPD History of IV heroin abuse 11/27/2020. Chest x-ray unremarkable, urinalysis negative and cultures are pending. Continue IV fluids and follow labs/cultures. Acute kidney injury appears to have improved with creatinine 1.7 on admission now 1.2. Patient complains of left flank pain. Check renal ultrasound. With regards to chest pain, patient undergoing stress test this a.m. If stress test and ultrasound found to be negative, anticipate discharge later today or in a.m. History Interval history: No new issues overnight Hospitalist Physical - Constitutional Vitals: Temp Pulse Resp BP Pulse Ox 97.3 F L 76 20 158/81 93 11/27/20 07:44 11/27/20 07:44 11/27/20 07:44 11/27/20 07:44 11/27/20 07:44 General appearance: Present: no acute distress, well-nourished - EENT Eyes: Present: PERRL, EOM intact ENT: hearing intact, clear oral mucosa, dentition normal - Neck Neck: Present: supple, normal ROM - Respiratory Respiratory effort: normal Respiratory: bilateral: CTA - Cardiovascular Rhythm: regular Heart Sounds: Present: S1 & S2. Absent: gallop, rub - Extremities Extremities: no ischemia, No edema, Full ROM - Abdominal General gastrointestinal: soft, non-tender, non-distended, normal bowel sounds - Integumentary Integumentary: Present: clear, warm, dry - Neurologic Neurologic: CNII-XII intact, moves all extremities HEART Score - HEART Score EKG: Non-specific Age: 45-65 Risk factors: 1-2 risk factors Troponin: Troponin T < 0.010 ng/mL (0.00-0.029) 11/26/20 17:10 Troponin: < normal limit Results - Labs CBC & Chem 7: 11/26/20 13:40 11/26/20 21:45 Labs: Laboratory Last Values WBC 19.0 K/mm3 (4.5-11.0) H 11/26/20 13:40 RBC 5.44 M/mm3 (3.65-5.03) H 11/26/20 13:40 Hgb 16.3 gm/dl (11.8-15.2) H 11/26/20 13:40 Hct 49.6 % (35.5-45.6) H 11/26/20 13:40 MCV 91 fl (84-94) 11/26/20 13:40 MCH 30 pg (28-32) 11/26/20 13:40 MCHC 33 % (32-34) 11/26/20 13:40 RDW 14.0 % (13.2-15.2) 11/26/20 13:40 Plt Count 542 K/mm3 (140-440) H 11/26/20 13:40 Lymph % (Auto) 8.2 % (13.4-35.0) L 11/26/20 13:40 [facility] % (Auto) 6.1 % (0.0-7.3) 11/26/20 13:40 Eos % (Auto) 0.0 % (0.0-4.3) 11/26/20 13:40 Baso % (Auto) 0.5 % (0.0-1.8) 11/26/20 13:40 Lymph # (Auto) 1.5 K/mm3 (1.2-5.4) 11/26/20 13:40 [facility] # (Auto) 1.2 K/mm3 (0.0-0.8) H 11/26/20 13:40 Eos # (Auto) 0.0 K/mm3 (0.0-0.4) 11/26/20 13:40 Baso # (Auto) 0.1 K/mm3 (0.0-0.1) 11/26/20 13:40 Seg Neutrophils % 85.2 % (40.0-70.0) H 11/26/20 13:40 Seg Neutrophils # 16.2 K/mm3 (1.8-7.7) H 11/26/20 13:40 Sodium 135 mmol/L (137-145) L 11/26/20 21:45 Potassium 3.8 mmol/L (3.6-5.0) 11/26/20 21:45 Chloride 100.0 mmol/L (98-107) 11/26/20 21:45 Carbon Dioxide 20 mmol/L (22-30) L 11/26/20 21:45 Anion Gap 19 mmol/L 11/26/20 21:45 BUN 25 mg/dL (9-20) H 11/26/20 21:45 Creatinine 1.2 mg/dL (0.8-1.3) 11/26/20 21:45 Estimated GFR > 60 ml/min 11/26/20 21:45 BUN/Creatinine Ratio 21 % 11/26/20 21:45 Glucose 105 mg/dL (75-100) H 11/26/20 21:45 Lactic Acid 1.50 mmol/L (0.7-2.0) 11/26/20 17:10 Calcium 8.7 mg/dL (8.4-10.2) D 11/26/20 21:45 Magnesium 1.50 mg/dL (1.7-2.3) L 11/26/20 13:40 Total Bilirubin 0.80 mg/dL (0.1-1.2) 11/26/20 13:40 Direct Bilirubin 0.2 mg/dL (0-0.2) 11/26/20 13:40 Indirect Bilirubin 0.6 mg/dL 11/26/20 13:40 AST 25 units/L (5-40) 11/26/20 13:40 ALT 22 units/L (7-56) 11/26/20 13:40 Alkaline Phosphatase 124 units/L (35-129) 11/26/20 13:40 Ammonia 23.0 umol/L (25-60) L 11/26/20 13:40 Total Creatine Kinase 365 units/L (55-170) H 11/26/20 14:55 Troponin T < 0.010 ng/mL (0.00-0.029) 11/26/20 17:10 NT-Pro-B Natriuret Pep 1985 pg/mL (0-900) H 11/26/20 13:40 Total Protein 9.2 g/dL (6.3-8.2) H 11/26/20 13:40 Albumin 4.9 g/dL (3.9-5) 11/26/20 13:40 Albumin/Globulin Ratio 1.1 % 11/26/20 13:40 Triglycerides 292 mg/dL (2-149) H 11/26/20 21:45 Cholesterol 258 mg/dL (50-199) H 11/26/20 21:45 LDL Cholesterol Direct 187 mg/dL (50-130) H 11/26/20 21:45 HDL Cholesterol 40 mg/dL (40-59) 11/26/20 21:45 Cholesterol/HDL Ratio 6.45 % 11/26/20 21:45 Lipase 35 units/L (13-60) 11/26/20 13:40 Lipase 38 units/L (13-60) 11/26/20 13:40 Urine Color Roxie (Yellow) 11/26/20 Unknown Urine Turbidity Clear (Clear) 11/26/20 Unknown Urine pH 5.0 (5.0-7.0) 11/26/20 Unknown Ur Specific [place] 1.044 (1.003-1.030) H 11/26/20 Unknown Urine Protein 100 mg/dl mg/dL (Negative) 11/26/20 Unknown Urine Glucose (UA) Neg mg/dL (Negative) 11/26/20 Unknown Urine Ketones Tr mg/dL (Negative) 11/26/20 Unknown Urine Blood Sm (Negative) 11/26/20 Unknown Urine Nitrite Neg (Negative) 11/26/20 Unknown Urine Bilirubin Sm (Negative) 11/26/20 Unknown Urine Ictotest Negative (Negative) 11/26/20 Unknown Urine Urobilinogen < 2.0 mg/dL (<2.0) 11/26/20 Unknown Ur Leukocyte Esterase Neg (Negative) 11/26/20 Unknown Urine WBC (Auto) 3.0 /HPF (0.0-6.0) 11/26/20 Unknown Urine RBC (Auto) 9.0 /HPF (0.0-6.0) 11/26/20 Unknown Hyaline Casts 1 /LPF 11/26/20 Unknown Urine Mucus Few /HPF 11/26/20 Unknown Salicylates < 0.3 mg/dL (2.8-20.0) L 11/26/20 13:40 Urine Opiates Screen Negative 11/26/20 Unknown Urine Methadone Screen Positive 11/26/20 Unknown Acetaminophen 12.4 ug/mL (10.0-30.0) 11/26/20 13:40 Ur Barbiturates Screen Negative 11/26/20 Unknown Ur Phencyclidine Scrn Negative 11/26/20 Unknown Ur Amphetamines Screen Negative 11/26/20 Unknown U Benzodiazepines Scrn Negative 11/26/20 Unknown Urine Cocaine Screen Negative 11/26/20 Unknown U Marijuana (THC) Screen Negative 11/26/20 Unknown Drugs of Abuse Note Disclamer 11/26/20 Unknown Microbiology: Microbiology 11/26/20 15:05 Peripheral/Venous Blood Culture - Preliminary Culture in Progress 11/26/20 14:55 Peripheral/Venous Blood Culture - Preliminary Culture in Progress Devi/IV: Voiding Method Toilet Active Medications - Current Medications Current Medications: Generic Name Dose Route Start Last Admin Trade Name Freq PRN Reason Stop Dose Admin Acetaminophen 650 mg 11/26/20 21:28 Acetaminophen 325 Mg Tab PO Q4H PRN Pain MILD(1-3)/Fever >100.5/RIVAS Albuterol 2.5 mg 11/26/20 21:28 Albuterol 2.5 Mg/3 Ml Nebu IH Q3HRT PRN Shortness Of Breath Aspirin 325 mg 11/27/20 10:00 Aspirin Ec 325 Mg Tab PO QDAY LOPEZ Atorvastatin Calcium 40 mg 11/26/20 22:00 11/26/20 22:40 Atorvastatin 40 Mg Tab PO 40 mg QHS LOPEZ Administration Docusate Sodium 100 mg 11/26/20 22:00 11/26/20 22:40 Docusate Sodium 100 Mg Cap PO 100 mg BID LOPEZ Administration Heparin Sodium (Porcine) 5,000 unit 11/26/20 22:00 11/26/20 22:43 Heparin 5,000 Unit/1 Ml Vial SUB-Q 5,000 unit Q12HR LOPEZ Administration Hydromorphone HCl 0.5 mg 11/26/20 21:28 11/27/20 07:34 Hydromorphone 1 Mg/1 Ml Inj IV 0.5 mg Q3H PRN Administration Pain , Severe (7-10) Morphine Sulfate 2 mg 11/26/20 21:28 11/27/20 05:00 Morphine 4 Mg/1 Ml Inj IV 2 mg Q5MIN PRN Administration Chest Pain Naloxone HCl 0.1 mg 11/26/20 21:28 Naloxone 0.4 Mg/1 Ml Inj IV Q2MIN PRN Res Rate </= 8 or 02 SAT < 92% Nicotine 14 mg 11/27/20 10:00 Nicotine 14 Mg/24 Hr Patch TD QDAY LOPEZ Nitroglycerin 0.4 mg 11/26/20 21:28 Nitroglycerin 0.4 Mg Tab Subl SL Q5M PRN Chest Pain Ondansetron HCl 4 mg 11/26/20 21:28 Ondansetron 4 Mg/2 Ml Inj IV Q6H PRN Nausea And Vomiting Oxycodone/Acetaminophen 1 tab 11/26/20 21:28 Oxycodone /Acetaminophen 5-325mg Tab PO Q6H PRN Pain, Moderate (4-6) Sodium Chloride 10 ml 11/26/20 22:00 11/26/20 22:43 Sodium Chloride 0.9% 10 Ml Flush Syringe IV 10 ml BID LOPEZ Administration Sodium Chloride 10 ml 11/26/20 21:28 11/27/20 05:00 Sodium Chloride 0.9% 10 Ml Flush Syringe IV 10 ml PRN PRN Administration LINE FLUSH
[2020-11-27] MEDS: HEPARIN 5,000 UNIT/1 ML VIAL SUB-Q SCH (10:23)
[2020-11-27] MEDS: DOCUSATE SODIUM 100 MG CAP PO SCH (10:23)
--- NOTE | 2020-11-27 10:24 | Discharge Summary ---
Providers - Providers Date of Admission: 11/26/20 21:28 Date of discharge: 11/27/20 Attending physician: SWAPNA REYNOSO 11/26/20 22:44 Consult to Physician [CONS] Routine Comment: Consulting Provider: KAIDEN DODD Physician Instructions: Reason For Exam: Renal insufficiency, hx hd Primary care physician: VOIP ENGINEER Hospitalization Reason for admission: Chest pain, Condition: Good Hospital course: 65-year-old -[place] male with history of COPD, tobacco abuse, and IV heroin use on methadone who complains of chest pain and " withdrawal". Patient states he has been experiencing 10/10 sharp substernal chest pain with radiation to upper back x3 days. Initially his pain was intermittent however progress to constant and became more intense as the days progressed. Denies taking any [id number] medicine for relief. Endorses multiple episodes of emesis last night and one episode today prior to presenting to ED. Patient states he is visiting from [place] and has been here approximately 1 week. The patient was admitted with diagnosis of SIRS, atypical chest pain, acute kidney injury on CKD, tobacco abuse, history of COPD and history of IV heroin use. Chest x-ray unremarkable, urinalysis negative and cultures negative. The patient received IV fluids and acute kidney injury appeared to have improved with creatinine 1.7 on admission and now 1.2. Patient complained of left flank pain. Therefore, renal ultrasound was ordered. With regards to chest pain, patient underwent stress test this a.m. that was found to be negative. Patient refused echocardiogram. The patient showed no evidence of infection. Therefore, antibiotics were discontinue. If renal ultrasound is negative, patient will be discharged home. Dedicated discharge time 35 minutes. Disposition: DC- TO HOME OR SELFCARE Final Discharge Diagnosis (Prints w/discharge instructions): Chest pain, SIRS, atypical chest pain, acute kidney injury on CKD, vasomotor nephropathy, tobacco abuse, COPD, IV heroin use Core Measure Documentation - Palliative Care Palliative Care/ Comfort Measures: Not Applicable - Core Measures Any of the following diagnoses?: none Exam - Constitutional Vitals: Temp Pulse Resp BP Pulse Ox 97.3 F L 76 20 158/81 93 11/27/20 07:44 11/27/20 07:44 11/27/20 07:44 11/27/20 07:44 11/27/20 07:44 General appearance: Present: no acute distress, well-nourished - EENT Eyes: Present: PERRL ENT: hearing intact, clear oral mucosa - Neck Neck: Present: supple, normal ROM - Respiratory Respiratory effort: normal Respiratory: bilateral: CTA - Cardiovascular Heart Sounds: Present: S1 & S2. Absent: rub, click - Extremities Extremities: pulses symmetrical, No edema Peripheral Pulses: within normal limits - Abdominal General gastrointestinal: Present: soft, non-tender, non-distended, normal bowel sounds Male genitourinary: Present: normal - Integumentary Integumentary: Present: clear, warm, dry - Musculoskeletal Musculoskeletal: gait normal, strength equal bilaterally - Psychiatric Psychiatric: appropriate mood/affect, intact judgment & insight - Neurologic Neurologic: CNII-XII intact, moves all extremities Plan Activity: no restrictions, advance as tolerated Weight Bearing Status: Weight Bear as Tolerated Follow up with: PRIMARY CARE, [Primary Care Provider] - 3-5 Days
[2020-11-27 10:59] VITALS: BP 127/86
--- NOTE | 2020-11-27 11:31 | Nuclear Medicine Report ---
APPROVED REPORT Exam: Nuclear Stress Test Indication: Chest pain Patient Location: [address] [place] [address] Room #: 466 Ht: 5 ft 10 in Wt: 180 lbs BSA: 2.00 m2 HR: 73 bpmBP: 135/93 mmHgBMI: 25.82 Rhythm: SINUS RHYTHM Stress Test Details Stress Test: Pharmacologic stress testing performed using 0.4 mg of regadenoson per 5 mL given IV over 10 seconds. HR Resting HR: 73 bpm Max Heart Rate (APMHR): 155.388621 bpm Target HR (85% APMHR): 131.517508 bpm Recovery HR: 97 bpm HR response to stress: Normal HR response to stress BP Resting BP: 135/93 mmHg Max BP: 145/100 mmHg Recovery BP: 119/79 mmHg ECG Resting ECG: Sinus Rhythm Arrhythmia: None Recovery Arrhythmia: None Clinical Reason for Termination: Completed protocol Stress Symptoms: None NM EXAM: Myocardial Perfusion REST/STRESS Imaging Protocol: Rest Tc-99m/Stress Tc-99m 1 day Resting Data Rest SPECT myocardial perfusion imaging was performed in supine position 45 minutes following the intravenous injection of 10 mCi of Tc-99m Myoview. Time of rest injection: 0700 Pharmacologic Stress Pharmacologic stress test was performed by injecting Regadenoson 0.4 mg IV push followed by the intravenous injection of 28 mCi of Tc-99m Myoview. Time of stress injection: 0850 Gated Stress SPECT was performed 30 minutes after stress injection. The images were gated to evaluate regional wall motion and calculate left ventricular ejection fraction. Study Quality Study: excellent Lung Uptake: Normal Study Data TID = 1.01. Perfusion Wall Motion The rest and stress images show normal left ventricular wall motion. Nuclear Conclusion ECG Findings: negative for ischemia Clinical Findings: negative for ischemia Nuclear Findings: negative for ischemia Exercise Capacity: not assessed Left Ventricular Function: normal Normal study. No scintigraphic evidence for myocardial ischemia or scar. Normal left ventricular size and function with no regional wall motion abnormalities.
--- NOTE | 2020-11-27 12:27 | Electrocardiograph Report ---
[facility] Test Date: 2020-11-26 Test Time: 13:13:31 Pat Name: MICAH ESCAMILLA Department: Room: A466 1 Gender: M Financial Aid: MAG : 1955 Requested By: NITIN LAURENT Order Number: [id number] Reading MD: Elena Arias Measurements Intervals [place] Rate: 111 P: 73 UT: 124 QRS: 62 QRSD: 92 T: 62 QT: 343 QTc: 467 Interpretive Statements Sinus tachycardia Otherwise normal ECG No previous ECG available for comparison Electronically Signed On 11-27-2020 12:26:51 EDT by Elena Arias
--- NOTE | 2020-11-27 12:37 | Electrocardiograph Report ---
[facility] Test Date: 2020-11-27 Test Time: 07:27:37 Pat Name: MICAH ESCAMILLA Department: Room: A466 1 Gender: M Manager Environmental: JOHN : 1955 Requested By: CHIQUIS BATISTA Order Number: [id number] Reading MD: Elena Arias Measurements Intervals [place] Rate: 83 P: -35 HI: 123 QRS: 62 QRSD: 94 T: 65 QT: 389 QTc: 458 Interpretive Statements Sinus rhythm ST elevation, consider inferior injury Compared to ECG 11/26/2020 13:13:[address] elevation is now evident Electronically Signed On 11-27-2020 12:37:22 EDT by Elena Arias
--- NOTE | 2020-11-27 12:40 | Electrocardiograph Report ---
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
== END 2020-11-27 12:45 | disposition home or self-care (01) ==
LOC: ED 12:19 → 4A 21:28
PROVIDERS: ADMIT Internal Medicine Geriatric Medicine; ATTEND Hospitalist
DX: R07.89 Other chest pain (principal); R65.10 Systemic inflammatory response syndrome (SIRS) of non-infectious origin without acute organ dysfunction; R10.9 Unspecified abdominal pain; N17.9 Acute kidney failure, unspecified; N18.9 Chronic kidney disease, unspecified; J44.9 Chronic obstructive pulmonary disease, unspecified; E87.2 Acidosis; F17.210 Nicotine dependence, cigarettes, uncomplicated; F11.129 Opioid abuse with intoxication, unspecified; Z87.898 Personal history of other specified conditions; Z79.899 Other long term (current) drug therapy; Z98.890 Other specified postprocedural states; Z79.82 Long term (current) use of aspirin
CPT/HCPCS: 36415; 71046; 74176; 76705; 78452; 80048; 80061; 80076; 80307; 81001; 82140; 82550; 83690; 83735; 83880; 84484; 85025; 85520; 87040; 87086; 93005; 93017; 93308; 93321; 93325; 96361; 96365; 96366; 96367; 96372; 96375; 96376; 99285; A9270; A9502; G0378; J1170; J1335; J1644; J2270; J2405; J2785; J3475; J7030; 80320; G0480